=== PATIENT | male | born 1985 | race Caucasian/White ===

== ENCOUNTER 2017-07-27 09:55 | Emergency (ER) | payer MEDICARE ==
[~2017-07-27 09:55] MED LIST: ALBU8HFA PO; CYCL-1 PO; LISI-600 PO
== END 2017-07-27 10:02 | disposition left against medical advice (07) ==
LOC: ER 09:55
DX: J11.1 Influenza due to unidentified influenza virus with other respiratory manifestations (principal); Z53.21 Procedure and treatment not carried out due to patient leaving prior to being seen by health care provider

== ENCOUNTER 2019-11-26 00:54 | Emergency (ER) | payer MEDICARE ==
[~2019-11-26] VITALS: Ht 177.8 cm; Wt 90.9 kg
[2019-11-26 00:57] VITALS: BP 136/94
== END 2019-11-26 02:50 | disposition left against medical advice (07) ==
LOC: ER 00:55
DX: H57.10 Ocular pain, unspecified eye (principal); Z53.21 Procedure and treatment not carried out due to patient leaving prior to being seen by health care provider

== ENCOUNTER 2020-02-10 10:58 | Emergency (ER) | payer MEDICARE, OTHER ==
[~2020-02-10] VITALS: Ht 175.3 cm; Wt 84.1 kg
[2020-02-10] MEDS ORDERED: ibuprofen tablet 400 MG TABLET PO ONE (11:10)
[2020-02-10] MEDS ORDERED: ceFAZolin 1000mg inj IV ONE (11:45)
[2020-02-10] MEDS ORDERED: TETanus/Pertussis (Acell)/Diphther VAC/PF (Tdap-Adult) 0.5ml syringe IMVAC ONE (11:45)
[2020-02-10] MEDS ORDERED: bacitracin 15gm ointment TP ONE (11:45)
[2020-02-10] MEDS ORDERED: morphine 4 MG/ML inj SYRINge IV ONE (11:45)
[2020-02-10] MEDS ORDERED: LIDOcaine 1% W/epiNEPHrine 1:200,000 10ml vial IJ ONE (11:45)
[2020-02-10] MEDS ORDERED: ondansetron/PF 4mg/2ml inj IV ONE (11:45)
[2020-02-10] MEDS ORDERED: normal saline 1000ML IV soln IVB ONE (11:45)
[2020-02-10] MEDS ORDERED: iohexol 300mg/ml 100ml inj. ONE (11:49)
[2020-02-10] MEDS ORDERED: ceFAZolin 2gm in dextrose, iso 50 ML IV ONE (12:20)
[2020-02-10] MEDS ORDERED: AMOX-117 PO (13:38)
[2020-02-10] MEDS ORDERED: HYDR-3965 PO (13:38)
[2020-02-10] MEDS ORDERED: ONDA4TAB6 PO (13:38)
[2020-02-10 15:07] VITALS: BP 160/105
== END 2020-02-10 15:10 ==
LOC: ER 10:58
DX: S22.31XA Fracture of one rib, right side, initial encounter for closed fracture (principal); S41.151A Open bite of right upper arm, initial encounter; S31.35XA Open bite of scrotum and testes, initial encounter; I10 Essential (primary) hypertension; J45.909 Unspecified asthma, uncomplicated; F41.9 Anxiety disorder, unspecified; F31.9 Bipolar disorder, unspecified; F20.9 Schizophrenia, unspecified; F15.90 Other stimulant use, unspecified, uncomplicated; Z86.69 Personal history of other diseases of the nervous system and sense organs; Z79.2 Long term (current) use of antibiotics; Z79.899 Other long term (current) drug therapy; W54.0XXA Bitten by dog, initial encounter; Y93.89 Activity, other specified; Y92.89 Other specified places as the place of occurrence of the external cause; Y99.8 Other external cause status
CPT/HCPCS: 12005; 71260; 73060; 73090; 73110; 73130; 74177; 90471; 90715; 96365; 96375; 99285; J2270; J2405; J7030; Q9967

== ENCOUNTER 2023-06-22 15:03 | Emergency (ER) | payer MEDICAID ==
[~2023-06-22] VITALS: Ht 172.7 cm; Wt 79.5 kg
[~2023-06-22 15:03] MED LIST changes: -LISI-600 PO; +LISI20TA28 PO; +ONDA4TAB6 PO
[2023-06-22 19:49] VITALS: BP 172/83; PULSE 98; RESP 14; TEMP 97.6; O2SAT 98
== END 2023-06-22 19:55 ==
LOC: ER 15:04
DX: F31.9 Bipolar disorder, unspecified; F17.200 Nicotine dependence, unspecified, uncomplicated; F15.10 Other stimulant abuse, uncomplicated; F20.9 Schizophrenia, unspecified; Z79.899 Other long term (current) drug therapy
CPT/HCPCS: 99284